=== PATIENT | male | born 1960 | race Caucasian/White ===

== ENCOUNTER 2017-06-26 02:19 | Emergency (ER) | payer OTHER ==
[~2017-06-26] VITALS: Ht 167.6 cm; Wt 91.9 kg
[2017-06-26 03:03] LABS: HEMATOCRIT 44.8 % (38.0-50.0); MCH 31.4 PG (29.0-34.0); MCHC 35.9 G/DL (30.0-36.0); MCV 87.3 FL (86-99); MEAN PLAT.VOLUME 10.4 uM^3 (9.0-12.4); PLATELET COUNT 174 K/uL (156-360); RBC DIS.WIDTH-SD 41.6 % (39-53); RED BLOOD COUNT 5.13 M/uL (4.00-5.50); WHITE BLOOD COUNT 4.6 K/uL (4.1-10.2)
[2017-06-26 03:13] LABS: CHLORIDE 105 mEq/L (99-109); POTASSIUM 3.8 mEq/L (3.7-5.4); SODIUM 140 mEq/L (136-147)
[2017-06-26 03:17] LABS: ANION GAP 8 MEQ/L (2-14)
[2017-06-26 03:18] LABS: TOTAL BILIRUBIN 1.1 mg/dL (0.0-1.0)
[2017-06-26 03:19] LABS: GFR ESTIMATE (CALCULATED) > 59 mL/min/ (58.99-99999)
[2017-06-26 03:54] LABS: GLUCOSE 119 mg/dL (70-99)
[2017-06-26 03:57] LABS: ALKALINE PHOSPHATASE 80 IU/L (3-129)
[2017-06-26 03:59] LABS: UREA NITROGEN (BUN) 12 mg/dL (9-23)
[2017-06-26 04:01] LABS: LIPASE 30 U/L (1.0-51.0)
[2017-06-26 04:29] VITALS: BP 141/96
== END 2017-06-26 04:30 | disposition home or self-care (01) ==
LOC: EME 02:19
PROVIDERS: Emergency Medicine
DX: R42 Dizziness and giddiness (principal); F41.9 Anxiety disorder, unspecified; I10 Essential (primary) hypertension; E78.5 Hyperlipidemia, unspecified; K21.9 Gastro-esophageal reflux disease without esophagitis
CPT/HCPCS: 80053; 83690; 85027; 93005; 99281; 99284; J7030